=== PATIENT | female | born 1995 | race Caucasian/White ===

== ENCOUNTER → 2021-04-20 14:21 | Outpatient (CLI) | payer OTHER, MEDICAID, SELFPAY ==
--- NOTE | 2021-04-20 14:23 | DI.US.S_ITS ---
PROCEDURE: US OB <= 14 WEEKS FETUS INDICATIONS: DATING AND VIABILITY OUTSIDE/PRIOR DATING DATA: Last menstrual period (LMP): 02/20/2021 LMP-based estimated date of delivery (JASWINDER): 11/27/2021 First dating scan (date and location): 04/20/2021. Estimated date of delivery (JASWINDER) from first dating scan: 11/28/2021. TECHNIQUE: Real-time scanning was performed of the fetus and maternal pelvic organs, with image documentation. Endovaginal scanning was also performed to better visualize the fetus and maternal ovaries. COMPARISON: None. FINDINGS: Embryo: [place]-rump length measures 18 mm corresponding to 8 weeks 2 days. Heart rate: 162 Measurement variability in dating: +/- 4 weeks by LMP, +/- 7 days by mean sac diameter (use before 6 weeks gestation if crown-rump length not able to be measured), +/- 5 days by crown-rump length (up to 8 weeks 6 days gestation), +/- 7 days by crown-rump length (up to 13 weeks 6 days gestation). Maternal organs: Ovaries within normal limits . IMPRESSION: 8 week 2 day single living IUP. Dictated by: Nagi De La Garza RRA Interpreted: Kevin Garay MD on 04/20/2021 at 16:04 Transcribed by: EMEKA on 04/20/2021 at 16:05 Approved by: Kevin Garay M.D. on 04/20/2021 at 17:04
== END ==
PROVIDERS: PCP Registered Nurse; Referring Provider Obstetrics & Gynecology; Visit Provider Obstetrics & Gynecology
DX: Z34.81 Encounter for supervision of other normal pregnancy, first trimester (principal); Z3A.08 8 weeks gestation of pregnancy
CPT/HCPCS: 76801; 76830

== ENCOUNTER 2021-05-11 20:04 | Emergency (ER) | payer OTHER, MEDICAID, SELFPAY ==
[2021-05-11 20:12] VITALS: BP 119/80; PULSE 78; RESP 22; TEMP 37.3; O2SAT 98
[2021-05-11] MEDS: SODIUM CHLORIDE 0.9% 1,000 ML 1000 ML IV (21:30)
[2021-05-11 22:02] LABS: Add Manual Diff / Slide Review NO; Basophils Absolute Auto 0 /uL (0-100); Basophils Percent Auto 0.2 % (0-2); Eosinophils Absolute Auto 0 /uL (0-450); Eosinophils Percent Auto 0.1 % (2-4); Hematocrit 41.8 % (36-46); Hemoglobin 14.5 g/dL (12.0-16.0); Lymphocytes Absolute Auto 800 /uL (1100-4500); Lymphocytes Percent Auto 9.2 % (25-40); Mean Corpuscular HGB Conc 34.6 % (30-36); Mean Corpuscular Hemoglobin 29.8 PG (26-34); Monocytes Absolute Auto 900 /uL (0-900); Monocytes Percent Auto 10.1 % (3-14); Neutrophils Absolute Auto 7300 /uL (1500-7000); Neutrophils Percent Auto 80.4 % (50-75); Platelet Count 203 X10^3/uL (150-400); Red Blood Cell Count 4.86 X10^6/uL (4.0-5.2); Red Cell Distribution Width 13.3 % (11.6-14.8); White Blood Cell Count 9.1 X10^3/uL (4.5-11.0)
[2021-05-11 22:07] LABS: Alanine Aminotransferase 23 IU/L (<35); Albumin 4.5 g/dL (3.5-5.0); Albumin Globulin Ratio 1.4 (1.0-2.8); Alkaline Phosphatase 49 U/L (38-126); Aspartate Aminotransferase 22 IU/L (14-36); Bilirubin Total 0.9 mg/dL (0.2-1.3); Blood Urea Nitrogen 5 mg/dL (7-17); Calcium 9.3 mg/dL (8.4-10.2); Carbon Dioxide 22 mmol/L (22-32); Chloride 104 mmol/L (98-107); Estimated Glomerular Filt Rate > 60.0 mL/min (>60); Globulin 3.2 g/dL (1.7-4.1); Glucose 94 mg/dL (70-100); HEMOLYSIS < 15 (0-50); Potassium 3.9 mmol/L (3.4-5.1); Sodium 136 mmol/L (137-145); Total Protein 7.7 g/dL (6.3-8.2)
[2021-05-11 22:59] VITALS: BP 108/58; PULSE 67; RESP 16; O2SAT 99
--- NOTE | 2021-05-11 23:09 | ED_ITS ---
HPI - Nausea/Vomiting/Diarrhea General Chief complaint: Nausea/Vomiting/Diarrhea Stated complaint: vomiting a couple times every hour Time Seen by Provider: 05/11/21 23:04 Source: patient Mode of arrival: Ambulatory History of Present Illness HPI Narrative: 26-year-old at 12 weeks who presents with vomiting. She notes that she had her 2nd Moderna COVID vaccine yesterday and is wondering if that might be contributing. She complains of no fevers, abdominal pain vaginal bleeding or vaginal discharge. She has not yet felt the baby begin to move. Related Data Allergies Allergy/AdvReac Type Severity Reaction Status Date / Time Penicillins Allergy Mild Has not Verified 05/11/21 22:32 taken. Sulfa (Sulfonamide Allergy Mild Has not Verified 05/11/21 22:32 Antibiotics) taken. Review of Systems Review of Systems Narrative: Remainder of complete review of systems is otherwise unremarkable except for that included in the HPI. Patient History Medical History PTSD (post-traumatic stress disorder) (~2017) Surgical History History of elective (~2016) Family History Mother Bipolar 1 disorder Father Arthritis Glaucoma Pre-diabetes Grandmother Bipolar 1 disorder Hyperlipidemia Hypertension Obesity H/O bilateral hip replacements Bipolar 1 disorder, depressed, severe Grandfather History of bilateral knee replacement Grandmother Hypertension History of cataract surgery Grandfather Dementia Blind or low vision, both eyes Diabetes mellitus Hypertension Family/Other Developmental delay Epilepsy Social History marital status: number of children: 1 household members: spouse and children (With his dad for 1/2 time custody also. 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 ) current occupational exposures/hazards: Yes (But she uses standard precautions.) special mukund needs: No seatbelt use: always do you feel safe at home: Yes Smoking Status: Never smoker second hand exposure: Yes (Second hand marijuana smoke, windows open.) alcohol intake: former (Very occasional, socially only.) substance use type: does not use during the past year weight has: remained stable well-balanced diet: daily or most days daily servings fruits/ve-4 caffeine: Yes (Cut down a lot, soda most days. Discussed high sugar content. ) Type(s) of exercise: normal ROM and activity frequency: does not exercise Smoking Status: Never smoker Exam Narrative Exam Narrative: General: Alert appropriate in no acute distress Respiratory: Able to speak in full sentences, no obvious respiratory distress Skin: No obvious rashes, warm and dry Neurologic: Grossly intact no obvious asymmetries or abnormalities Psych: appropriate insight and affect, cooperative Bedside ultrasound: Viable intrauterine fetus with heart rate at 140. Initial Vital Signs Initial Vital Signs: Vital Signs Temperature 99.1 F 05/11/21 20:12 Pulse Rate 78 05/11/21 20:12 Respiratory Rate 22 05/11/21 20:12 Blood Pressure 119/80 05/11/21 20:12 Pulse Oximetry 98 05/11/21 20:12 Course Orders Ordered: ED Orders 05/11/21 21:42 Complete Blood Count AUTO DIFF Stat Comprehensive Metabolic Panel Stat Discontinued Medications Sodium Chloride (Normal Saline 0.9%) 1,000 mls @ 1,000 mls/hr IV BOLUS ONE Stop: 05/11/21 22:50 Last Infusion: 05/11/21 22:33 Dose: 0 mls/hr Documented by: Admin: 05/11/21 21:30 Dose: 1,000 mls/hr Documented by: MELIDA Vital Signs Vital signs: Vital Signs - 8 hr 05/11/21 20:12 05/11/21 22:59 Temperature 99.1 F Pulse Rate 78 67 Respiratory Rate 22 16 Blood Pressure 119/80 108/58 L Pulse Oximetry 98 99 MDM - Nausea/Vomiting/Diarrhea Lab Data Result diagrams: 05/11/21 21:42 05/11/21 21:42 Labs: Lab Results 05/11/21 05/11/21 Range/Units 21:42 21:42 WBC 9.1 (4.5-11.0) X10^3/uL RBC 4.86 (4.0-5.2) X10^6/uL Hgb 14.5 (12.0-16.0) g/dL Hct 41.8 (36-46) % MCV 86.0 (80-100) fL MCH 29.8 (26-34) PG MCHC 34.6 (30-36) % RDW 13.3 (11.6-14.8) % Plt Count 203 (150-400) X10^3/uL Neut % (Auto) 80.4 H (50-75) % Lymph % (Auto) 9.2 L (25-40) % [place] % (Auto) 10.1 (3-14) % Eos % (Auto) 0.1 L (2-4) % Baso % (Auto) 0.2 (0-2) % Neut # (Auto) 7300 H (7878-0893) /uL Lymph # (Auto) 800 L (2846-9579) /uL [place] # (Auto) 900 (0-900) /uL Eos # (Auto) 0 (0-450) /uL Baso # (Auto) 0 (0-100) /uL Sodium 136 L (137-145) mmol/L Potassium 3.9 (3.4-5.1) mmol/L Chloride 104 (98-107) mmol/L Carbon Dioxide 22 (22-32) mmol/L BUN 5 L (7-17) mg/dL Creatinine 0.50 L (0.52-1.04) mg/dL Estimated GFR > 60.0 (>60) mL/min BUN/Creatinine Ratio 10.0 (6-22) Glucose 94 (70-100) mg/dL Calcium 9.3 (8.4-10.2) mg/dL Total Bilirubin 0.9 (0.2-1.3) mg/dL AST 22 (14-36) IU/L ALT 23 (<35) IU/L Alkaline Phosphatase 49 (38-126) U/L Total Protein 7.7 (6.3-8.2) g/dL Albumin 4.5 (3.5-5.0) g/dL Globulin 3.2 (1.7-4.1) g/dL Albumin/Globulin Ratio 1.4 (1.0-2.8) MDM Narrative Medical decision making narrative: 26-year-old at 12 weeks with vomiting developing approximately 12 hours after her 2nd COVID shot. She feels significantly better after L of fluid. Bedside ultrasound confirms viable intrauterine fetus. She is discharged home with Zofran if needed. She has OB follow-up scheduled next week. She is safe for home discharge at this time Discharge Plan Departure Patient Disposition: Home Clinical Impression: Nausea & vomiting Qualifiers: Vomiting type: unspecified Vomiting Intractability: non-intractable Qualified Code(s): R11.2 - Nausea with vomiting, unspecified Instructions: DI for Vomiting -- Adult Activity Restrictions/Additional Instructions: Thank you for coming in today I am sorry that you had this bit of nausea after your 2nd Moderna COVID v accination. Your feeling better with a L of fluid and bedside ultrasound shows a happy baby with a heart rate in the 140 range growing inside. If you are continuing to experience any nausea over the next day or so you can use Zofran to help. Please keep your routine follow-up appointment with your OB. Good luck with the rest severe Referrals: Xin Rogers ARNP [Primary Care Provider] -
[2021-05-11] MEDS: ONDANSETRON 4 MG ODT PREPACK 1 BOTTLE MISC (23:42)
== END 2021-05-11 23:44 | disposition home or self-care (01) ==
PROVIDERS: Emergency Provider Emergency Medicine; PCP Registered Nurse
DX: O21.9 Vomiting of pregnancy, unspecified (principal); Z3A.12 12 weeks gestation of pregnancy
CPT/HCPCS: 80053; 85025; 96360; 99283; 99284

== ENCOUNTER → 2021-06-16 12:17 | Outpatient (CLI) | payer OTHER, MEDICAID, SELFPAY ==
[2021-06-16 12:54] LABS: Add Manual Diff / Slide Review NO; Basophils Absolute Auto 0 /uL (0-100); Basophils Percent Auto 0.3 % (0-2); Eosinophils Absolute Auto 0 /uL (0-450); Eosinophils Percent Auto 0.5 % (2-4); Hematocrit 38.4 % (36-46); Hemoglobin 13.1 g/dL (12.0-16.0); Lymphocytes Absolute Auto 1400 /uL (1100-4500); Lymphocytes Percent Auto 16.4 % (25-40); Mean Corpuscular HGB Conc 34.2 % (30-36); Mean Corpuscular Hemoglobin 29.6 PG (26-34); Mean Corpuscular Volume 86.8 fL (80-100); Monocytes Absolute Auto 600 /uL (0-900); Monocytes Percent Auto 7.2 % (3-14); Neutrophils Absolute Auto 6600 /uL (1500-7000); Neutrophils Percent Auto 75.6 % (50-75); Platelet Count 227 X10^3/uL (150-400); Red Blood Cell Count 4.42 X10^6/uL (4.0-5.2); Red Cell Distribution Width 14.2 % (11.6-14.8); White Blood Cell Count 8.7 X10^3/uL (4.5-11.0)
[2021-06-16 14:08] LABS: Appearance Urine UA CLOUDY; Bilirubin Urine UA NEGATIVE (NEGATIVE); Color Urine UA YELLOW; Glucose Urine UA NEGATIVE (Negative); Ketones Urine UA NEGATIVE (NEGATIVE); Leukocyte Esterase Urine UA 3+ (NEGATIVE); Nitrite Urine UA NEGATIVE (Negative); Occult Blood Urine UA TRACE-INTACT (Negative); Protein Urine UA 1+ (Negative); Specific Gravity Urine UA 1.025 (1.000-1.035)
[2021-06-16 14:52] LABS: Bacteria Urine Moderate (10-30); Calcium Oxalate Crystals Urine Occasional; RBC Urine 0-1/HPF (0-5/HPF); Squamous Epithelial Cell Urine 10-30 /HPF (0-5/HPF); WBC Urine 5-10/HPF (0-5/HPF)
[2021-06-17 05:04] LABS: RPR Screen Non Reactive (Non Reactive)
[2021-06-17 11:09] LABS: Varicella IgG Antibody 747 index (Immune >165)
[2021-06-17 19:39] LABS: Hepatitis B Surface Antigen NEGATIVE s/c (NEGATIVE)
[2021-06-17 19:59] LABS: HIV 1 & 2 Ab/Ag 4th Gen Combo NEGATIVE (NEGATIVE); Hep C Virus Ab w/Reflex Quant NEGATIVE s/c (NEGATIVE)
[2021-06-18 12:38] LABS: AFP, Serum 27.4 ng/mL (.); Estriol, Free 1.03 ng/mL (.); Inhibin A, Dimeric 121.41 pg/mL (.); Inhibin A, MoM 0.91 (.); Maternal Ethnicity Caucasian (.); Maternal Weight 200 lbs (.); Number of Fetuses No (.); OSBR Risk 1 IN 10000 (.); Results Report (.); Test Results *Screen Negative* (.); hCG, MoM 0.68 (.); hCG, Serum 20588 mIU/mL (.)
== END ==
PROVIDERS: PCP Registered Nurse; Referring Provider Obstetrics & Gynecology; Visit Provider Obstetrics & Gynecology
DX: Z34.82 Encounter for supervision of other normal pregnancy, second trimester; Z3A.16 16 weeks gestation of pregnancy
CPT/HCPCS: 36415; 80055; 81003; 81015; 82105; 82677; 84702; 86336; 86787; 86803; 86850; 86900; 86901; 87389

== ENCOUNTER → 2021-07-12 09:32 | Outpatient (CLI) | payer OTHER, MEDICAID, SELFPAY ==
--- NOTE | 2021-07-12 09:33 | DI.US.S_ITS ---
PROCEDURE: US OB >= 14 WEEKS FETUS INDICATIONS: ANATOMY OUTSIDE/PRIOR DATING DATA: Last menstrual period (LMP): February 20, 2021 . LMP-based estimated date of delivery (JASWINDER): November 27, 2021 . First dating scan (date and location): [facility]; April 20, 2021 . Estimated date of delivery (JASWINDER) from first dating scan: November 28, 2021 . TECHNIQUE: Real-time scanning was performed of the fetus, with image documentation and biometric measurements. COMPARISON: None. FINDINGS: General: A single living intrauterine gestation is present. Presentation: Vertex. Placenta: Placental position is posterior , without previa. Amniotic fluid index: 17.8 cm, normal range is 5-24 cm. heart rate: 155 beats per minute. Maternal cervical canal: 4.6 cm long. Normal lower limit is 2.5 cm. biometrics: Biparietal diameter: 4.7 cm Head circumference: 17.3 cm Abdominal circumference: 14.5 cm Femur length: 3.3 cm Estimated gestational age from initial scan: not applicable. Composite gestational age from present scan: 20 weeks, 1 day Estimated weight and percentile: 331 g +/-49 g; 42 percentile Measurement variability for biometric dating: +/- 7 days from 14 weeks to 15 weeks 6 days gestation, +/- 10 days from 16 weeks to 21 weeks 6 days gestation, +/- 2 weeks from 22 weeks to 27 weeks 6 days gestation, +/- 3 weeks for 28 weeks gestation or later. weight reference: 4500 g or EFW >90/95% is considered macrosomia or large for gestational age. EFW <10% is small for gestational age. EFW 5% or less is considered intra-uterine growth restriction. Anatomic survey: Neuro: Ventricles are non-dilated at less than 10 mm. Cisterna magna is normal at 3-11 mm. Cerebellum is normal in size and morphology. Nuchal skin fold: Normal at less than 6 mm between 14-21 weeks gestational age. Face: Nose and lips, facial profile are normal. Spine: No evidence for spina bifida. Heart: 4-chambered heart is present, with normal ventricular outflow tracts. Diaphragm: Diaphragm is intact. Stomach: Left-sided stomach is present. Kidneys: No hydronephrosis. Normal is less than 5 mm in 2nd trimester, less than 7 mm in 3rd trimester. Cord: 3-vessel cord has orthotopic insertion. Bladder: Normal in size. Extremities: All 4 extremities identified. IMPRESSION: Live single intrauterine gestation as detailed above. Dictated by: Roney Cordova M.D. on 07/12/2021 at 12:13 Approved by: Roney Cordova M.D. on 07/12/2021 at 12:19
== END ==
PROVIDERS: PCP Registered Nurse; Referring Provider Obstetrics & Gynecology; Visit Provider Obstetrics & Gynecology
DX: Z34.82 Encounter for supervision of other normal pregnancy, second trimester (principal); Z3A.20 20 weeks gestation of pregnancy
CPT/HCPCS: 76811

== ENCOUNTER → 2021-10-27 11:14 | Outpatient (CLI) | payer OTHER, MEDICAID, SELFPAY ==
[2021-10-27 14:31] LABS: Hematocrit 32.9 % (36-46); Hemoglobin 11.1 g/dL (12.0-16.0)
[2021-10-27 15:07] LABS: GTT (PREG) 1 Hour PP 50gm Dose 139 mg/dL (76-139)
== END ==
PROVIDERS: PCP Registered Nurse; Referring Provider Obstetrics & Gynecology; Visit Provider Obstetrics & Gynecology
DX: Z34.82 Encounter for supervision of other normal pregnancy, second trimester (principal); Z3A.25 25 weeks gestation of pregnancy
CPT/HCPCS: 36415; 82950; 85014; 85018

== ENCOUNTER → 2021-10-29 15:37 | Outpatient (CLI) | payer OTHER, MEDICAID, SELFPAY ==
[2021-10-30 13:34] LABS: Strep Grp B PCR POS for Grp B Strep
== END ==
PROVIDERS: PCP Registered Nurse; Visit Provider Obstetrics & Gynecology
DX: Z36.85 Encounter for antenatal screening for Streptococcus B (principal); Z3A.36 36 weeks gestation of pregnancy
CPT/HCPCS: 87186; 87653

== ENCOUNTER 2021-11-17 13:15 | Outpatient (CLI) | payer OTHER, MEDICAID, SELFPAY ==
--- NOTE | 2021-11-17 14:24 | P.TNLD_ITS ---
Visit Information Visit Information Date of evaluation: 11/17/21 Primary OB Provider: Matt Deal On-call OB Provider: Matt Deal Reason for Evaluation: Yes rupture of membranes [facility] Medical History (Updated 11/12/21 @ 09:39 by Matt Deal MD) PTSD (post-traumatic stress disorder) (~2016) Surgical History (Updated 05/19/21 @ 11:45 by Matt Deal MD) History of delivery, antepartum History of elective (~2015) Family History Mother Bipolar 1 disorder Father Arthritis Glaucoma Pre-diabetes Grandmother Bipolar 1 disorder Hyperlipidemia Hypertension Obesity H/O bilateral hip replacements Bipolar 1 disorder, depressed, severe Grandfather History of bilateral knee replacement Grandmother Hypertension History of cataract surgery Grandfather Dementia Blind or low vision, both eyes Diabetes mellitus Hypertension Family/Other Developmental delay Epilepsy Social History marital status: number of children: 1 household members: spouse and children (With his dad for 1/2 time custody also. 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 ) current occupational exposures/hazards: Yes (But she uses standard precautions.) special muknud needs: No seatbelt use: always do you feel safe at home: Yes Smoking Status: Never smoker second hand exposure: Yes (Second hand marijuana smoke, windows open.) alcohol intake: former (Very occasional, socially only.) substance use type: does not use during the past year weight has: remained stable well-balanced diet: daily or most days daily servings fruits/ve-4 caffeine: Yes (Cut down a lot, soda most days. Discussed high sugar content. ) Type(s) of exercise: normal ROM and activity frequency: does not exercise Evaluation Evaluation Baseline heart rate: 140 Variability: Moderate (11-25) monitor accelerations: Present Monitor Decelerations: Absent Category of Tracing: Reactive Status: Category l Non-invasive Membranes Rupture Test: negative Diagnosis, Plan/Disposition Final Diagnosis (1) History of delivery, antepartum: Status: Acute (2) GBS (group B Streptococcus carrier), +RV culture, currently : Status: Acute Plan/Disposition Plan: No evidence of SROM therefore will discharge to home with instructions/precautions and follow-up as scheduled prior to scheduled repeat 11/26/2021. OB Disposition: home
== END 2021-11-17 14:27 | disposition home or self-care (01) ==
LOC: OB 11-18 07:48
PROVIDERS: Referring Provider Obstetrics & Gynecology; Visit Provider Obstetrics & Gynecology
DX: Z03.71 Encounter for suspected problem with amniotic cavity and membrane ruled out (principal); O99.820 Streptococcus B carrier state complicating pregnancy; O34.219 Maternal care for unspecified type scar from previous cesarean delivery; Z3A.38 38 weeks gestation of pregnancy
CPT/HCPCS: 59025; 84112; G0378; G0379

== ENCOUNTER 2021-11-26 05:54 | Inpatient (IN) | payer OTHER, MEDICAID, SELFPAY ==
[2021-11-26 06:22] VITALS: BP 114/60
[2021-11-26 06:32] LABS: Add Manual Diff / Slide Review NO; Basophils Absolute Auto 100 /uL (0-100); Basophils Percent Auto 0.8 % (0-2); Eosinophils Absolute Auto 200 /uL (0-450); Eosinophils Percent Auto 1.8 % (2-4); Hematocrit 34.1 % (36-46); Hemoglobin 11.4 g/dL (12.0-16.0); Lymphocytes Absolute Auto 1800 /uL (1100-4500); Lymphocytes Percent Auto 18.8 % (25-40); Mean Corpuscular HGB Conc 33.3 % (30-36); Mean Corpuscular Hemoglobin 25.4 PG (26-34); Mean Corpuscular Volume 76.1 fL (80-100); Monocytes Absolute Auto 900 /uL (0-900); Monocytes Percent Auto 9.7 % (3-14); Neutrophils Absolute Auto 6500 /uL (1500-7000); Neutrophils Percent Auto 68.9 % (50-75); Platelet Count 237 X10^3/uL (150-400); Red Blood Cell Count 4.49 X10^6/uL (4.0-5.2); Red Cell Distribution Width 15.7 % (11.6-14.8); White Blood Cell Count 9.5 X10^3/uL (4.5-11.0)
[2021-11-26 06:44] LABS: COVID19 -Nasal RAPID Negative (Negative)
--- NOTE | 2021-11-26 07:17 | SUR.OPER ---
Supine on Padded OR bed, head on pillow, safety belt at thigh, arms secured on padded arm boards at <90 degrees abduction. Bump under right buttock. Legs uncrossed with pillow under knees, gel pad to heels, tape over blanket to lower legs.
--- NOTE | 2021-11-26 07:21 | P.HPOB_ITS ---
OB HPI Date/Time Date of admission: 11/26/21 Date Patient Seen: 11/26/21 Time Patient Seen: 07:21 History of Present Condition Chief complaint: INPT/C SECTION : 3 Para: 1 Estimated Date of Delivery: 11/27/21 Estimated Gestational Age (weeks): 39+6 Narrative: Jeanne Vasquez is a 26 year old admitted for repeat section now at 39+6 weeks EGA. course has been unremarkable and JASWINDER firm. GBS is positive. Indications Operative indications ( section): previous uterine surgery History of Present care: good care Dating criteria: LMP confirmed by 1st trimester US Ultrasounds: normal 1st trimester US and normal mid trimester US Obstetrical complications: none Medical complications: none Preadmission Labs Blood type: A (+) positive -: Antibody screen: negative, GBS status: positive, HBsAG: negative, HIV: negative and RPR/VDLR: negative -: Chlamydia screen: not detected and Gonorrhea screen: not detected -: Rubella: immune and Varicella: immune HCT: 34.1 HCAB: reactive PAP: Normal Quad screen: Normal 1 hr GTT: 139 Evaluation Evaluation Baseline heart rate: 145 Variability: Moderate (11-25) monitor accelerations: Present Monitor Decelerations: Absent Category of Tracing: Reactive Status: Category l PFSH Medical History (Updated 11/12/21 @ 09:39 by Matt Deal MD) PTSD (post-traumatic stress disorder) (~2016) Surgical History (Updated 05/19/21 @ 11:45 by Matt Deal MD) History of delivery, antepartum History of elective (~2015) Family History Mother Bipolar 1 disorder Father Arthritis Glaucoma Pre-diabetes Grandmother Bipolar 1 disorder Hyperlipidemia Hypertension Obesity H/O bilateral hip replacements Bipolar 1 disorder, depressed, severe Grandfather History of bilateral knee replacement Grandmother Hypertension History of cataract surgery Grandfather Dementia Blind or low vision, both eyes Diabetes mellitus Hypertension Family/Other Developmental delay Epilepsy Social History marital status: number of children: 1 household members: spouse and children (With his dad for 1/2 time custody also. 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 ) current occupational exposures/hazards: Yes (But she uses standard precautions.) special mukund needs: No seatbelt use: always do you feel safe at home: Yes Smoking Status: Never smoker second hand exposure: Yes (Second hand marijuana smoke, windows open.) alcohol intake: former (Very occasional, socially only.) substance use type: does not use during the past year weight has: remained stable well-balanced diet: daily or most days daily servings fruits/ve-4 caffeine: Yes (Cut down a lot, soda most days. Discussed high sugar content. ) Type(s) of exercise: normal ROM and activity frequency: does not exercise Meds Home Medications and Allergies Home Medications Medication Instructions Recorded Confirmed Type No Known Home Medications 11/26/21 11/26/21 History Allergies Allergy/AdvReac Type Severity Reaction Status Date / Time Penicillins Allergy Mild Has not Verified 10/29/21 14:33 taken. Sulfa (Sulfonamide Allergy Mild Has not Verified 10/29/21 14:33 Antibiotics) taken. Review of Systems Review of Systems Narrative: Problem-specific ROS positives included in HPI OB Exam HENMT Head: normal to inspection, normocephalic and atraumatic Eyes General: appearance normal, both eyes and all related structures Resp Effort & Inspection: normal respiratory effort and able to speak in complete sentences Auscultation: clear to auscultation bilaterally Cardio Rate: regular rate Rhythm: regular rhythm Heart Sounds: S1 normal, S2 normal and no murmurs Extremities Lower extremity: Yes normal to inspection GI Inspection: normal to inspection Palpation: Yes soft and Yes no hepatosplenomegaly External Female Exam: Yes other (Deferred) Uterus Location (Fundal Height): 38 Estimated Weight (lbs): 8 Objective Labs Result Diagrams: 11/26/21 06:20 Labs: Laboratory Results - last 24 hr 11/26/21 11/26/21 06:20 06:20 WBC 9.5 RBC 4.49 Hgb 11.4 L Hct 34.1 L MCV 76.1 L MCH 25.4 L MCHC 33.3 RDW 15.7 H Plt Count 237 Neut % (Auto) 68.9 Lymph % (Auto) 18.8 L [place] % (Auto) 9.7 Eos % (Auto) 1.8 L Baso % (Auto) 0.8 Neut # (Auto) 6500 Lymph # (Auto) 1800 [place] # (Auto) 900 Eos # (Auto) 200 Baso # (Auto) 100 SARS-CoV-2 (PCR) Negative Assessment and Plan Assessment and Plan Assessment and Plan narrative: ASSESSMENT 1. Intrauterine , waldrop, vertex, 39+6 weeks EGA 2. Prior section PLAN 1. Admit for repeat section 2. See admission orders
--- NOTE | 2021-11-26 07:31 | PM.PREOP ---
Pre-operative Note COVID-19 COVID-19 status: Negative Result date/Date tested (Pos, Neg/Pending): 11/26/21 Criteria for continued procedure: Non-surgical alternatives not available or appropriate per current SOC Interval Note History & Physical reviewed/Exam performed by Physician: Yes Changes to H&P: No
[2021-11-26] MEDS: CLINDAMYCIN 900 MG/50 ML PIGGYBACK 50 MG IV (08:10)
[2021-11-26] MEDS: LACTATED RINGERS 1,000 ML 100 ML IV ×2 (08:15→08:56)
--- NOTE | 2021-11-26 08:36 | SUR.OPER ---
viable baby girl delivered at 08:27. Intact placenta delivered and sent with cord blood tubes to L&D with the baby
[2021-11-26 09:19] VITALS: BP 106/67; PULSE 64; RESP 16; TEMP 36.4; O2SAT 100
[2021-11-26 09:24] VITALS: BP 112/56; PULSE 60; RESP 16; O2SAT 100
--- NOTE | 2021-11-26 09:24 | PM.OBCS.1 ---
Operative Date/Time/Diagnoses Date of procedure: 11/26/21 Time of procedure: 08:00 Pre-op diagnosis: Intrauterine gestation, [place], 39+ 6 weeks gestational age History of previous section Post-op diagnosis: same Procedure & Clinicians Procedure: Repeat section (low transverse cervical) Same procedure as scheduled: Yes Indications: Jeanne Vasquez is a 26 year old admitted for repeat section now at 39+6 weeks EGA. course has been unremarkable and JASWINDER firm. GBS is positive. Surgeon: Matt Deal Oracle Drm Consultant: Divya Franklin Reason for Oracle Drm Consultant: Retraction and the safe, effective, and timely performance of this complex surgical procedure. Anesthesia Type: Spinal Operative Notes Findings: Viable female delivered from the vertex presentation with Apgars of 9/9, weight 3306 g (7 lb. 4.6 oz.). Normal gravid anatomy. Closure Type: primary Specimen(s): cord blood Intraoperative meds administered: Pitocin Applied: Catheter Estimated Blood Loss (mL): 750 Blood products transfused: none Procedure in detail: With the patient under satisfactory spinal block anesthesia in the dorsal supine position, the abdomen was prepped and draped in the usual fashion for section following insertion of a Corral catheter. A pre-surgical safety time-out was then taken in accordance with [facility] OR protocols. A 15 cm transverse incision was then made along the line of her old scar and carried down to the deep fascia. The deep fascia was incised transversely, the rectus abdomini bluntly, and the peritoneum was entered sharply. A bladder flap was created with a transverse incision of the peritoneum overlying the lower uterine segment and the bladder advanced. The lower uterine segment was then incised transversely and the amniotic cavity entered atraumatically. Clear amniotic fluid was noted and the infant was delivered from vertex presentation without difficulty. Both a nuchal and shoulder cord were noted at the time of delivery and reduced following delivery of the infant. Delayed cord clamping was performed and once the umbilical cord was clamped and cut, cord blood sample was obtained for routine studies. The placenta was then removed from the endometrial cavity with uterine massage and gentle traction on the umbilical cord. The endometrial cavity was found to be empty with use of a sloppy wet lap followed by dry lap. All redundant membranes were removed and the endocervical canal dilated with a ring forcep. Ring forceps were used to secure both angles and the hysterotomy was closed 1st with #1 Chromic in a running interlocking stitch initiated both angles and tying separately near the midline. A 2nd layer of #1 Chromic was used in a running interlocking imbricating stitch to over sew the 1st. A left ascending uterine artery ligation was accomplished with a single stitch of #1 Chromic. Hemostasis was excellent with no points of bleeding noted in the pelvis. The bladder flap was then closed with 2-0 Vicryl and the anterior peritoneum was closed in a similar fashion. The deep fascia was then closed with #1 Vicryl in a running stitch initiated at both angles inciting separately near the midline. Subcutaneous tissues brought together was 2-0 Vicryl in a running stitch and skin edges were reapproximated with 4-0 Monocryl in a running imbricating stitch. Mastisol was applied to the skin and Steri-Strips then applied. An AquaCel dressing was then applied over the Steri-Strips and the procedure was terminated with the infant doing well and the mother having tolerated the procedure well. Complications: none Baby 1: Infant Gender: Female Presentation: vertex Position: Left Occiput Anterior Placental Delivery Description: Spontaneous and Expressed score (1 min): 9 score (5 min): 9 weight: 7 lb 4.616 oz Post-operative Condition: stable Disposition: PACU Aftercare: routine postop
[2021-11-26 09:29] VITALS: BP 112/65; PULSE 61; RESP 16; O2SAT 96
[2021-11-26 09:34] VITALS: BP 113/65; PULSE 59; RESP 16; TEMP 36.4; O2SAT 100
[2021-11-26 15:30] VITALS: TEMP 36.7
[2021-11-26] MEDS: KETOROLAC 30 MG/ML VIAL IV (15:30)
[2021-11-26] MEDS: ACETAMINOPHEN 325 MG TABLET 650 MG PO (21:34)
[2021-11-26] MEDS: IBUPROFEN 600 MG TABLET PO (21:34)
[2021-11-27] MEDS: ACETAMINOPHEN 325 MG TABLET 650 MG PO ×2 (04:27→15:41)
[2021-11-27] MEDS: IBUPROFEN 600 MG TABLET PO ×3 (04:27→20:01)
[2021-11-27 06:30] LABS: Add Manual Diff / Slide Review NO; Basophils Absolute Auto 0 /uL (0-100); Basophils Percent Auto 0.2 % (0-2); Eosinophils Absolute Auto 0 /uL (0-450); Eosinophils Percent Auto 0.3 % (2-4); Hemoglobin 8.7 g/dL (12.0-16.0); Lymphocytes Absolute Auto 2200 /uL (1100-4500); Lymphocytes Percent Auto 16.5 % (25-40); Mean Corpuscular HGB Conc 33.2 % (30-36); Mean Corpuscular Hemoglobin 25.6 PG (26-34); Monocytes Absolute Auto 1300 /uL (0-900); Monocytes Percent Auto 9.5 % (3-14); Neutrophils Absolute Auto 9800 /uL (1500-7000); Neutrophils Percent Auto 73.5 % (50-75); Platelet Count 190 X10^3/uL (150-400); Red Blood Cell Count 3.39 X10^6/uL (4.0-5.2); Red Cell Distribution Width 15.7 % (11.6-14.8); White Blood Cell Count 13.3 X10^3/uL (4.5-11.0)
--- NOTE | 2021-11-27 10:39 | PM.OBPN.1 ---
Subjective - OB Subjective Patient comments: no complaints [place] baby status: doing well feeding status: exclusively breast feeding Date Patient Seen: 11/27/21 Time Patient Seen: 11:40 Interval history: Patient has done extremely well for her 1st night and she is already passing some gas. She is also tolerating regular diet is ambulating independently although on a limited basis. Exam Vital Signs (past 8 hours): Oxygen Delivery Method Room Air Const General: cooperative, comfortable and well developed Nutritional Appearance: average body habitus Orientation: alert and oriented x3 HENMT Head: normal to inspection Ears: hearing grossly normal bilaterally Face and sinus: face symmetric Eyes General: appearance normal, both eyes and all related structures Conjunctivae: conjunctivae normal Sclera: sclerae normal EOM: EOM intact bilaterally Neck Neck: normal visual inspection Resp Effort & Inspection: normal respiratory effort and able to speak in complete sentences Auscultation: clear to auscultation bilaterally Cardio Rate: regular rate Rhythm: regular rhythm Heart Sounds: S1 normal, S2 normal and no murmurs GI Inspection: normal to inspection Palpation: soft, no hepatosplenomegaly and mass (Firm, minimally tender fundus, U -2.) Extrem General: no calf tenderness Psych Appearance: grossly normal Mental Status: mental status grossly normal Speech and Movement: speech and movement normal Mood: congruent mood Affect: normal affect Attitude: cooperative Thought Process: normal Thought Content: normal Judgment: judgment good Objective Labs Result Diagrams: 11/27/21 06:10 Labs: Laboratory Results - last 24 hr 11/27/21 06:10 WBC 13.3 H RBC 3.39 L Hgb 8.7 L Hct 26.0 L MCV 77.0 L MCH 25.6 L MCHC 33.2 RDW 15.7 H Plt Count 190 Neut % (Auto) 73.5 Lymph % (Auto) 16.5 L [place] % (Auto) 9.5 Eos % (Auto) 0.3 L Baso % (Auto) 0.2 Neut # (Auto) 9800 H Lymph # (Auto) 2200 [place] # (Auto) 1300 H Eos # (Auto) 0 Baso # (Auto) 0 Assessment & Plan Plan day: 1 plan OB: routine postop care Time Spent With Patient Time with patient: 15-24 minutes
[2021-11-27] MEDS: DOCUSATE 100 MG CAPSULE 200 MG PO ×2 (11:18→20:00)
[2021-11-27] MEDS: OXYCODONE IR 5 MG TABLET PO ×3 (11:19→20:02)
[2021-11-27] MEDS: PRENATAL VIT,CALC/IRON/FOLIC 1 TABLET 1 TAB PO (11:33)
[2021-11-28] MEDS: DOCUSATE 100 MG CAPSULE 200 MG PO (08:08)
[2021-11-28] MEDS: PRENATAL VIT,CALC/IRON/FOLIC 1 TABLET 1 TAB PO (08:08)
[2021-11-28] MEDS: IBUPROFEN 600 MG TABLET PO (08:09)
[2021-11-28] MEDS: ACETAMINOPHEN 325 MG TABLET 650 MG PO (08:10)
--- NOTE | 2021-11-28 11:03 | P.DS_ITS ---
History of Present Illness History of Present Illness Date Patient Seen: 11/28/21 Time Patient Seen: 11:04 Chief complaint: INPT/C SECTION Narrative: Jeanne Vasquez is a 26 year old admitted for repeat section now at 39+6 weeks EGA. course has been unremarkable and JASWINDER firm. GBS is positive. Discharge Providers Provider Date of admission: 11/26/21 05:54 Discharge Date: 11/28/21 Primary care physician: Doctor Rio MD Consults: 11/26/21 10:32 Consult to Facility Maintenance Mechanic Routine Comment: Discharge provider: Matt Deal MD Summary Hospital Course Discharge Diagnosis: Intrauterine gestation, [place], 39+ 6 weeks gestation, delivered by repeat section History of prior section Hospital Course: On the morning of 11/26/2021, the patient underwent an uneventful repeat section, the details of which are well summarized on the operative note of that date. Her postoperative course has been unremarkable with prompt return of bowel and bladder function, ambulating independently, tolerating a regular diet, and her pain well controlled with oral medications. Postoperative H&H consistent with observed operative losses. Mother and infant are both doing well. Patient will be discharged at this time in an afebrile normotensive condition to home after being counseled regarding precautionary symptoms, limitations of activity, medications, and follow-up. Medications at discharge will include ibuprofen 600 mg p.o. q.6 hours, oxycodone 5 mg 1 p.o. Q 4-6 hours as needed pain dispense 12 with no refills, and Colace 200 mg p.o. b.i.d.. In addition the patient will take OTC Tylenol for pain as needed. Patient's method of contraception is undecided at this point but will likely either be by progestin only OCs or insertion of a progestin secreting IUD at her 6 week checkup. Follow-up will be in 1 week or as needed. Status at Discharge Cognitive/behavioral status at discharge: oriented Functional status at discharge: independent ambulation Overall status at discharge: patient is progressing back to baseline Time Spent with Patient Time spent: Less than 30 minutes Exam Vital Signs (past 8 hours): Oxygen Delivery Method Room Air Const General: cooperative, comfortable and well developed Orientation: alert and oriented x3 HENMT Head: normal to inspection Face and sinus: face symmetric Eyes General: appearance normal, both eyes and all related structures Neck Neck: normal visual inspection Resp Effort & Inspection: normal respiratory effort and able to speak in complete sentences Auscultation: clear to auscultation bilaterally Cardio Rate: regular rate Rhythm: regular rhythm Heart Sounds: S1 normal, S2 normal and no murmurs GI Inspection: normal to inspection Palpation: soft, no hepatosplenomegaly and mass (Firm, nontender fundus, U -4) Extrem General: no calf tenderness Psych Appearance: grossly normal Mental Status: mental status grossly normal Speech and Movement: speech and movement normal Mood: congruent mood Affect: normal affect Attitude: cooperative Thought Process: normal Thought Content: normal Judgment: judgment good Objective Labs Result Diagrams: 11/27/21 06:10 [facility] Medical History (Updated 11/12/21 @ 09:39 by Matt Deal MD) PTSD (post-traumatic stress disorder) (~2016) Surgical History (Updated 05/19/21 @ 11:45 by Matt Deal MD) History of delivery, antepartum History of elective (~2015) Family History Mother Bipolar 1 disorder Father Arthritis Glaucoma Pre-diabetes Grandmother Bipolar 1 disorder Hyperlipidemia Hypertension Obesity H/O bilateral hip replacements Bipolar 1 disorder, depressed, severe Grandfather History of bilateral knee replacement Grandmother Hypertension History of cataract surgery Grandfather Dementia Blind or low vision, both eyes Diabetes mellitus Hypertension Family/Other Developmental delay Epilepsy Social History marital status: number of children: 1 household members: spouse and children (With his dad for 1/2 time custody also. 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 ) current occupational exposures/hazards: Yes (But she uses standard precautions.) special mukund needs: No seatbelt use: always do you feel safe at home: Yes Smoking Status: Never smoker second hand exposure: Yes (Second hand marijuana smoke, windows open.) alcohol intake: former (Very occasional, socially only.) substance use type: does not use during the past year weight has: remained stable well-balanced diet: daily or most days daily servings fruits/ve-4 caffeine: Yes (Cut down a lot, soda most days. Discussed high sugar content. ) Type(s) of exercise: normal ROM and activity frequency: does not exercise Discharge Assessment & Plan Assessment and Plan Assessment: Intrauterine gestation, Pitt, 39+ 6 weeks gestation, delivered by repeat section History of prior delivery Plan of Treatment: Routine postoperative care with 1 week follow-up for removal of AquaCel dressing. Discharge Plan Discharge Plan Patient Disposition: Home Provider Discharge Comment: Please review the instructions you received when you were discharged from the hospital. Your follow-up appointment will be scheduled for 1 week following her surgery and I look forward to seeing you then. If in the meanwhile however you have any issues, problems, or concerns, please contact me through the office phone or via the patient portal. Discharge orders & Medications Prescriptions: New docusate sodium 100 mg Capsule 200 mg PO BID Qty: 60 2RF ibuprofen [IBU] 600 mg tablet 600 mg PO Q6H PRN (Reason: fever or pain) Qty: 60 2RF oxycodone 5 mg Tablet 5 mg PO Q4H PRN (Reason: Pain, Moderate (4-6)) Qty: 12 0RF Follow up/Referrals: Doctor Rio, [Primary Care Provider] - Discharge Health Status Multidrug resistant organism: No MDRO Diet/Activity/Treatments Diet: Diet as Tolerated Activity: As tolerated Other treatments: [id number] Tylenol as needed Skin/Wound/Dressing Care Report to your healthcare provider any signs of infection, such as:: chills, fever, increased pain, unusual drainage and unusual redness Dressing: Dressing will be removed at the time of your 1 week postop visit Visit Report/Discharge Packet Instructions: DI for , DI for and Nipple Soreness, DI for Prescription Opioid Use Discharge Data Primary Care Provider: Doctor Rio
[2021-11-28 12:35] VITALS: BP 110/75; PULSE 71; RESP 17; TEMP 36.9
== END 2021-11-28 12:00 | disposition home or self-care (01) | DRG 540 ==
PROVIDERS: Admitting Provider Obstetrics & Gynecology; Referring Provider Obstetrics & Gynecology; Visit Provider Obstetrics & Gynecology
PROC: 10D00Z1 Extraction of Products of Conception, Low, Open Approach (ICD-10-PCS; CPT 59514; principal; 2021-11-26 07:45)
DX: O34.211 Maternal care for low transverse scar from previous cesarean delivery (principal); Z3A.39 39 weeks gestation of pregnancy; Z37.0 Single live birth; O99.824 Streptococcus B carrier state complicating childbirth; Z20.822 Contact with and (suspected) exposure to COVID-19
CPT/HCPCS: 36415; 59050; 59514; 85025; 86850; 86900; 86901; 87635; C9803; J1100; J1885; J2274; J2405; J2590

== ENCOUNTER 2023-05-17 10:20 | Emergency (ER) | payer SELFPAY ==
[2023-05-17 10:27] VITALS: BP 125/69; PULSE 53; RESP 17; TEMP 36.6; O2SAT 99; BMI 33.4
--- NOTE | 2023-05-17 10:38 | DI.RAD.S_ITS ---
PROCEDURE: XR SACRUM COCCYX MIN 2V INDICATIONS: pain after fall TECHNIQUE: 3 views of the sacrum and coccyx acquired. COMPARISON: [facility], CR, XR PELVIS 1-2V, 05/17/2023, 10:43. FINDINGS: Bones: No fractures or dislocations. No suspicious bony lesions. Soft tissues: Visualized bowel gas pattern is normal. No suspicious soft tissue densities. IMPRESSION: No acute osseous abnormality. If clinical symptoms persist or clinical suspicion for pathology is high, a repeat examination in 7-10 days, or advanced imaging such as CT or MRI is suggested for further evaluation. Dictated by: Sana Jones M.D. on 05/17/2023 at 11:52 Approved by: Sana Jones M.D. on 05/17/2023 at 11:52
--- NOTE | 2023-05-17 10:38 | DI.RAD.S_ITS ---
PROCEDURE: XR PELVIS 1-2V INDICATIONS: R hemipelvis pain after fall TECHNIQUE: 1 view(s) of the pelvis acquired. COMPARISON: [facility], CR, XR SACRUM COCCYX MIN 2V, 05/17/2023, 10:43. FINDINGS: Bones: No fractures or dislocations. No suspicious bony lesions. Soft tissues: Visualized bowel gas pattern is normal. No suspicious soft tissue calcifications. IMPRESSION: No acute abnormality. Dictated by: Sana Jones M.D. on 05/17/2023 at 11:55 Approved by: Sana Jones M.D. on 05/17/2023 at 11:55
--- NOTE | 2023-05-17 10:41 | ED.FALL ---
HPI - Fall General Chief Complaint: Fall Stated Complaint: fell down stairs poss tailbone injury Time Seen by Provider: 05/17/23 10:35 Source: patient Mode of arrival: Ambulatory History of Present Illness HPI Narrative: 28-year-old female who is here for evaluation of a tailbone injury and right hip injury after fall this morning. Patient states that she slipped on a deck stair and fell and landed right on her buttocks. She then bounced down to other stairs. She has had difficulty with walking because of pain in her tailbone in the back of her right hip since the event. No other injuries from the event. Did not hit her head. Related Data Previous Rx's Medication Instructions Recorded docusate sodium 100 mg capsule 200 mg PO BID #60 caps 11/28/21 ibuprofen 600 mg tablet (IBU) 600 mg PO Q6H PRN fever or pain 11/28/21 #60 tabs oxycodone 5 mg tablet 5 mg PO Q4H PRN Pain, Moderate 11/28/21 (4-6) #12 tabs escitalopram oxalate 5 mg tablet 10 mg PO DAILY #60 tabs 12/07/21 Allergies Allergy/AdvReac Type Severity Reaction Status Date / Time Penicillins Allergy Mild Has not Verified 05/17/23 10:27 taken. Sulfa (Sulfonamide Allergy Mild Has not Verified 05/17/23 10:27 Antibiotics) taken. Review of Systems Constitutional Constitutional: Reports system reviewed and no additional complaints, except as documented Musculoskeletal Musculoskeletal: Reports system reviewed and no additional complaints, except as documented Integumentary/Breasts Skin/Breast: Reports system reviewed and no additional complaints, except as documented Neurologic Neurologic: Reports system reviewed and no additional complaints, except as documented Patient History Medical History PTSD (post-traumatic stress disorder) (~2017) Surgical History (Updated 05/19/21 @ 11:45 by Matt Deal MD) History of delivery, antepartum History of elective (~2015) Family History Mother Bipolar 1 disorder Father Arthritis Glaucoma Pre-diabetes Grandmother Bipolar 1 disorder Hyperlipidemia Hypertension Obesity H/O bilateral hip replacements Bipolar 1 disorder, depressed, severe Grandfather History of bilateral knee replacement Grandmother Hypertension History of cataract surgery Grandfather Dementia Blind or low vision, both eyes Diabetes mellitus Hypertension Family/Other Developmental delay Epilepsy Social History marital status: number of children: 1 household members: spouse and children (With his dad for 1/2 time custody also. 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 ) current occupational exposures/hazards: Yes (But she uses standard precautions.) special mukund needs: No seatbelt use: always do you feel safe at home: Yes Smoking Status: Never smoker second hand exposure: Yes (Second hand marijuana smoke, windows open.) alcohol intake: former (Very occasional, socially only.) substance use type: does not use during the past year weight has: remained stable well-balanced diet: daily or most days daily servings fruits/ve-4 caffeine: Yes (Cut down a lot, soda most days. Discussed high sugar content. ) Type(s) of exercise: normal ROM and activity frequency: does not exercise Smoking Status: Never smoker alcohol intake frequency: holidays/special occasions only Substance Use Type: does not use Exam Initial Vital Signs Initial Vital Signs: Vital Signs Temperature 97.8 F 05/17/23 10:27 Pulse Rate 53 L 05/17/23 10:27 Respiratory Rate 17 05/17/23 10:27 Blood Pressure 125/69 05/17/23 10:27 Pulse Oximetry 99 05/17/23 10:27 Oxygen Delivery Method Room Air 05/17/23 10:27 Back/Spine/Pelvis Thoracic/Lumbar Spine: No paraspinal tenderness and No thoracic spinal tenderness Sacroiliac Joints: tender to palpation right Sacrum: no erythema and tenderness Skin General: no rashes or lesions noted Extrem Other: Bilateral upper extremities unremarkable. Left upper extremity unremarkable. She is able to walk on her right lower extremity but it does cause her discomfort in her SI joint. Her right ankle knee and hip are unremarkable. Course Orders Ordered: ED Orders 05/17/23 10:38 XR pelvis 1-2V Stat XR sacrum coccyx min 2V Stat Discontinued Medications Hydrocodone Bitart/Acetaminophen (Hydrocodone/Acet 5/325 Tablet) 1 tab PO NOW ONE Stop: 05/17/23 10:42 Last Admin: 05/17/23 10:45 Dose: 1 tab Documented By: YUVAL Vital Signs Vital signs: Vital Signs - 8 hr 05/17/23 10:27 Temperature 97.8 F Pulse Rate 53 L Respiratory Rate 17 Blood Pressure 125/69 Pulse Oximetry 99 Oxygen Delivery Method Room Air MDM - Fall Imaging Data Extremity x-ray #1: Radiologist's Impression: PROCEDURE:? XR SACRUM COCCYX MIN 2V ? INDICATIONS:? pain after fall ? TECHNIQUE:? 3 views of the sacrum and coccyx acquired.? ? COMPARISON:? [facility], , XR PELVIS 1-2V, 05/17/2023, 10:43. ? FINDINGS:? ? Bones:? No fractures or dislocations.? No suspicious bony lesions.? ? Soft tissues:? Visualized bowel gas pattern is normal.? No suspicious soft tissue densities.? ? IMPRESSION:? No acute osseous abnormality.? If clinical symptoms persist or clinical suspicion for pathology is high, a repeat examination in 7-10 days, or advanced imaging such as CT or MRI is suggested for further evaluation. Extremity x-ray #2: Radiologist's Impression: PROCEDURE:? XR PELVIS 1-2V ? INDICATIONS:? R hemipelvis pain after fall ? TECHNIQUE:? 1 view(s) of the pelvis acquired.? ? COMPARISON:? [facility], , XR SACRUM COCCYX MIN 2V, 05/17/2023, 10:43. ? FINDINGS:? ? Bones:? No fractures or dislocations.? No suspicious bony lesions.? ? Soft tissues:? Visualized bowel gas pattern is normal.? No suspicious soft tissue calcifications.? ? IMPRESSION:? No acute abnormality. [facility] Narrative Medical decision making narrative: No fractures or dislocations noted on the x-rays. Patient can ambulate as tolerated. No other injuries reported from the event. Discharge Plan Departure Patient Disposition: Home Clinical Impression: Coccygeal pain Activity Restrictions/Additional Instructions: There were no fractures or dislocations noted on the x-rays. You can walk on your right leg as tolerated. Recommend Tylenol/ibuprofen for discomfort. Prescriptions: No Action escitalopram oxalate 5 mg tablet 10 mg PO DAILY Qty: 60 3RF Rx Instructions: Take 1 tab daily for the 1st week and then increase to 2 tabs daily. docusate sodium 100 mg Capsule 200 mg PO BID Qty: 60 2RF ibuprofen [IBU] 600 mg tablet 600 mg PO Q6H PRN (Reason: fever or pain) Qty: 60 2RF oxycodone 5 mg Tablet 5 mg PO Q4H PRN (Reason: Pain, Moderate (4-6)) Qty: 12 0RF Referrals: Miscellaneous,Doctor, MD [Primary Care Provider] - Stand Alone Forms: Patient Portal/API
[2023-05-17] MEDS: HYDROCODONE/ACET 5/325 TABLET 1 TAB PO (10:45)
[2023-05-17 12:16] VITALS: BP 107/58; PULSE 46; O2SAT 99
== END 2023-05-17 12:16 | disposition home or self-care (01) ==
PROVIDERS: Emergency Provider Emergency Medicine
DX: M53.3 Sacrococcygeal disorders, not elsewhere classified (principal)
CPT/HCPCS: 72170; 72220; 99283

== ENCOUNTER → 2024-06-20 17:47 | Outpatient (CLI) | payer OTHER, SELFPAY ==
--- NOTE | 2024-06-20 17:50 | DI.RAD.S_ITS ---
PROCEDURE: XR HAND LT MIN 3V INDICATIONS: left wrist pain, thenar eminence swelling TECHNIQUE: 3 views of the hand(s) acquired. COMPARISON: [facility], CR, XR WRIST LT MIN 3V, 06/20/2024, 18:07. FINDINGS: No acute fracture or dislocation. The joint spaces are preserved. No significant joint effusion. No periarticular osteopenia, soft tissue calcifications, or osseous erosions. IMPRESSION: No acute fracture or dislocation of the left hand. Dictated by: Alexandre Saravia M.D. on 06/20/2024 at 18:48 Approved by: Alexandre Saravia M.D. on 06/20/2024 at 18:50
--- NOTE | 2024-06-20 17:50 | DI.RAD.S_ITS ---
PROCEDURE: XR WRIST LT MIN 3V INDICATIONS: left wrist pain, thenar emminence swelling s/p trauma TECHNIQUE: 4 views of the wrist were acquired. COMPARISON: None. FINDINGS: No radiographically evident fracture or dislocation. Soft tissue edema along the volar and dorsal aspect of the wrist along the proximal carpal row. No osseous erosions, soft tissue calcifications, or periarticular osteopenia. IMPRESSION: Soft tissue edema along the volar and dorsal aspects of the wrist, which may represent sequelae of an occult fracture in the setting of recent trauma. Consider a nonemergent MRI of the wrist without contrast to identify any possible fractures or ligamentous injuries. Dictated by: Alexandre Saravia M.D. on 06/20/2024 at 18:52 Approved by: Alexandre Saravia M.D. on 06/20/2024 at 18:55
== END ==
LOC: RAD 17:49
PROVIDERS: Referring Provider Physician Assistant Medical; Visit Provider Physician Assistant Medical
DX: S60.222A Contusion of left hand, initial encounter (principal); M25.532 Pain in left wrist; M25.432 Effusion, left wrist; X58.XXXA Exposure to other specified factors, initial encounter
CPT/HCPCS: 73110; 73130